=== PATIENT | female | born 1965 | race Caucasian/White ===

== ENCOUNTER 2020-10-17 18:13 | Emergency (ER) | payer OTHER ==
[~2020-10-17] VITALS: Ht 175.3 cm; Wt 79.4 kg
[2020-10-17] MEDS ORDERED: HYDROCODON-ACE1 EAC9 PO (18:51)
[2020-10-17] MEDS ORDERED: HYDROCODONE/APAP 10MG-325MG TAB PO ONE (19:00)
== END 2020-10-17 19:04 | disposition home or self-care (01) ==
LOC: ER 18:38
DX: G51.0 Bell's palsy (principal); B02.9 Zoster without complications
CPT/HCPCS: 99283

== ENCOUNTER 2020-11-07 20:40 | Emergency (ER) | payer OTHER ==
[~2020-11-07 20:40] MED LIST: HYDROCODON-ACE1 EAC9 PO
== END 2020-11-07 21:15 | disposition home or self-care (01) ==
LOC: ER 20:41
DX: G51.0 Bell's palsy (principal); B02.29 Other postherpetic nervous system involvement
CPT/HCPCS: 99282

== ENCOUNTER 2021-01-15 18:45 | Emergency (ER) | payer MEDICAID, OTHER ==
[~2021-01-15] VITALS: Ht 175.3 cm; Wt 84.4 kg
[2021-01-15] MEDS ORDERED: AMLODIPINE BESYL5 MG PO (23:53)
[2021-01-16 00:25] VITALS: BP 134/81
== END 2021-01-16 00:25 | disposition home or self-care (01) ==
LOC: FSED 20:55
DX: F19.239 Other psychoactive substance dependence with withdrawal, unspecified (principal); R53.83 Other fatigue; I10 Essential (primary) hypertension; E78.5 Hyperlipidemia, unspecified; J44.9 Chronic obstructive pulmonary disease, unspecified; F43.10 Post-traumatic stress disorder, unspecified; F98.8 Other specified behavioral and emotional disorders with onset usually occurring in childhood and adolescence; D75.1 Secondary polycythemia; F41.9 Anxiety disorder, unspecified; F32.9 Major depressive disorder, single episode, unspecified; F17.210 Nicotine dependence, cigarettes, uncomplicated
CPT/HCPCS: 71046; 80053; 81003; 82553; 84484; 85025; 93005; 99284